=== PATIENT | male | born 1960 | race Caucasian/White ===

== ENCOUNTER 2018-09-01 16:40 | Emergency (ER) | payer OTHER, SELFPAY ==
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
== END 2018-09-01 21:17 | disposition home or self-care (01) ==
LOC: ERS 16:40
DX: S22.41XA Multiple fractures of ribs, right side, initial encounter for closed fracture (principal); S12.100A Unspecified displaced fracture of second cervical vertebra, initial encounter for closed fracture; S00.11XA Contusion of right eyelid and periocular area, initial encounter; S15.102A Unspecified injury of left vertebral artery, initial encounter; I10 Essential (primary) hypertension; F17.210 Nicotine dependence, cigarettes, uncomplicated; Z79.899 Other long term (current) drug therapy; V49.9XXA Car occupant (driver) (passenger) injured in unspecified traffic accident, initial encounter
CPT/HCPCS: 70498